=== PATIENT | male | born 1960 | race Caucasian/White ===

== ENCOUNTER 2016-09-12 17:03 | Emergency (ER) | payer BC ==
[~2016-09-12] VITALS: Ht 180.3 cm; Wt 75.5 kg
[2016-09-12 17:07] VITALS: Ht 180.3 cm; Wt 75.5 kg
--- NOTE | 2016-09-12 17:41 | EMERGENCY ROOM VISIT NOTE ---
History First contact with patient: 17:10 Chief Complaint: HAND PAIN/INJURY Stated Complaint: LEFT HAND SWELLING History of Present Illness The patient is a 56 year old male who presents to the Emergency Room with complaints of a cat bite to his left arm yesterday. He was bit on his arm yesterday morning and went to his primary care provider. At his doctors office he states that he presented with a fever and his hand was very swollen and red. He was given a dose of Rocephin as well as started on Augmentin. He had taken 2 doses of Augmentin yesterday, and then 1 dose this morning but noticed continued redness in the area of the bite. He went back to his primary care physician this afternoon and was told to come to the emergency department. He currently states that the pain in his hand is 7 out of 10 and that because of the swelling is limited movement of his hand. He states that he did have a fever last night although was not documented, but he does not feel like he has a fever at this time. Review of Systems See HPI for pertinent positives and negatives. A total of ten systems were reviewed and were otherwise negative. Social History Smoking Status: Never Smoker Current/Historical Medications Scheduled Amoxicillin & Pot Clavulanate (Augmentin 875-125 mg), 1 TAB PO BID Pantoprazole (Protonix), 40 MG PO DAILY Scheduled PRN Tramadol (Ultram), 50 MG PO Q8H PRN for Pain Allergies Coded Allergies: No Known Allergies (Verified , 09/12/16) Physical Exam Vital Signs Date Time Temp Pulse Resp B/P (MAP) Pulse Ox O2 Delivery O2 Flow Rate FiO2 09/12/16 18:54 79 17 135/87 97 Room Air 09/12/16 17:07 36.7 88 18 142/87 92 Room Air Physical Exam GENERAL: Awake, alert, well-appearing, in no distress HENT: Normocephalic, atraumatic. EYES: Normal conjunctiva. Sclera non-icteric. NECK: Supple. No nuchal rigidity. RESPIRATORY: Clear to auscultation. CARDIAC: Regular rate, normal rhythm. Extremities warm and well perfused. Pulses equal. ABDOMEN: Soft, non-distended. No tenderness to palpation. No rebound or guarding. No masses. RECTAL: Deferred. MUSCULOSKELETAL: Tenderness to palpation over the left forearm and wrist. Patient has 5/5 strength in the left arm. Swelling over the left arm into the PIP joints of the digit. LOWER EXTREMITIES: Calves are equal size bilaterally and non-tender. No edema. No discoloration. NEURO: Normal sensorium. No sensory or motor deficits noted. SKIN: Erythema over the left forearm and hand. Appears that the majority of the infection has receded within the margins and is improving. Skin is hot and tender over the area of erythema. Erythema extends distally from the PIP/DIP joints of the 5 fingers to the mid forearm proximally. Medical Decision & Procedures Laboratory Results 09/12/16 17:55 Red Blood Count 4.63, Mean Corpuscular Volume 91.1, Mean Corpuscular Hemoglobin 31.7, Mean Corpuscular Hemoglobin Concent 34.8, Mean Platelet Volume 9.1, Neutrophils (%) (Auto) 73.7, Lymphocytes (%) (Auto) 12.7, Monocytes (%) (Auto) 12.2, Eosinophils (%) (Auto) 1.0, Basophils (%) (Auto) 0.2, Neutrophils # (Auto ) 7.06, Lymphocytes # (Auto) 1.22, Monocytes # (Auto) 1.17, Eosinophils # (Auto ) 0.10, Basophils # (Auto) 0.02 09/12/16 17:55 Test 09/12/16 17:55 White Blood Count 9.59 K/uL (4.8-10.8) Red Blood Count 4.63 M/uL (4.7-6.1) Hemoglobin 14.7 g/dL (14.0-18.0) Hematocrit 42.2 % (42-52) Mean Corpuscular Volume 91.1 fL (80-100) Mean Corpuscular Hemoglobin 31.7 pg (25-34) Mean Corpuscular Hemoglobin Concent 34.8 g/dl (32-36) Platelet Count 247 K/uL (130-400) Mean Platelet Volume 9.1 fL (7.4-10.4) Neutrophils (%) (Auto) 73.7 % Lymphocytes (%) (Auto) 12.7 % Monocytes (%) (Auto) 12.2 % Eosinophils (%) (Auto) 1.0 % Basophils (%) (Auto) 0.2 % Neutrophils # (Auto) 7.06 K/uL (1.4-6.5) Lymphocytes # (Auto) 1.22 K/uL (1.2-3.4) Monocytes # (Auto) 1.17 K/uL (0.11-0.59) Eosinophils # (Auto) 0.10 K/uL (0-0.5) Basophils # (Auto) 0.02 K/uL (0-0.2) RDW Standard Deviation 42.2 fL (36.4-46.3) RDW Coefficient of Variation 12.5 % (11.5-14.5) Immature Granulocyte % (Auto) 0.2 % Immature Granulocyte # (Auto) 0.02 K/uL (0.00-0.02) Anion Gap 6.0 mmol/L (3-11) Est Creatinine Clear Calc Drug Dose 93.3 ml/min Estimated GFR () 105.2 Estimated GFR (Non- 90.8 BUN/Creatinine Ratio 17.1 (10-20) Calcium Level 8.6 mg/dl (8.5-10.1) Medications Administered Medications (Trade) Dose Ordered Sig/Dennis Route Start Time Stop Time Status Last Admin Dose Admin Ceftriaxone Sodium (Rocephin Inj) 1 gm NOW STAT IV 09/12/16 18:37 09/12/16 18:38 DC 09/12/16 18:53 1 GM Medical Decision The patient is a 56-year-old male presents with a one-day history of redness and swelling to his left hand after sustaining a cat bite - Labs: CBC, BMP - Imagin View X-Ray of Left Wrist - Antibiotics: 1gm Rocephin Impression Primary Impression: Cat bite of hand Patient is a 56 year old male that present with a left hand cat bite - The infection appears to be improved on current antibiotic regimen - Patient received another 1gm Rocephin in the ED - left wrist X-ray shows no acute finding, cbc and bmp wnl - Will leave IV in patient for repeat treatment tomorrow with Rocephin in the ED - Patient instructed to continue with Augmentin oral antibiotics Departure Information Dispostion Home / Self-Care Condition GOOD Referrals No Doctor, Assigned (PCP) Forms HOME CARE DOCUMENTATION FORM, IMPORTANT VISIT INFORMATION, Work Instructions Return To Work: 1 day Specific Date: 09/14/2016 Patient Instructions My [facility] Additional Instructions - Please leave your IV in place as you will return to ED tomorrow evening ( after 5pm) for a repeat dose of Rocephin IV - Antibiotic treatment for the bite - Continue oral dose of Augmentin as directed - If you presents with worsening symptoms including fever, chill, numbness or tingling in your fingers, loss of movement of your hand, worsening pain, or any other concerning symptoms please return to the Emergency department Problem Qualifiers Primary Impression: Cat bite of hand Encounter type: initial encounter Laterality: left Qualified Codes: S61.452A - Open bite of left hand, initial encounter; W55.01XA - Bitten by cat, initial encounter
[2016-09-12 18:23] LABS: BASO % 0.2 %; BASO ABS # 0.02 K/uL (0-0.2); COMPLETE YES; HEMATOCRIT 42.2 % (42-52); IG% 0.2 %; LYMPH % 12.7 %; LYMPH ABS # 1.22 K/uL (1.2-3.4); MEAN CELL VOLUME 91.1 fL (80-100); MEAN CORPUSCULAR HEMOGLOBIN 31.7 pg (25-34); MEAN CORPUSCULAR HGB CONC 34.8 g/dl (32-36); MEAN PLATELET VOLUME 9.1 fL (7.4-10.4); MONO % 12.2 %; NEUT % 73.7 %; PLATELET COUNT 247 K/uL (130-400); RED BLOOD COUNT 4.63 M/uL (4.7-6.1); WHITE BLOOD COUNT 9.59 K/uL (4.8-10.8)
--- NOTE | 2016-09-12 18:26 | DIAGNOSTIC IMAGING REPORT ---
LEFT WRIST MIN 3 VIEWS ROUTINE CLINICAL HISTORY: Abnormal bright. Soft tissue swelling. COMPARISON: None. DISCUSSION: There are mild degenerative changes present. No fractures are visualized. There are no radiopaque foreign bodies. No destructive lesions are evident. No gas is visualized in soft tissues. There is soft tissue swelling. IMPRESSION: 1. Soft tissue swelling. 2. No radiopaque foreign bodies identified 3. No acute fractures 4. Arthritic changes Electronically signed by: Cruz Merlos M.D. 09/12/2016 6:24 PM Dictated Date/Time: 09/12/2016 6:23 PM
--- NOTE | 2016-09-12 18:33 | EMERGENCY ROOM VISIT NOTE ---
ED Visit Note First contact with patient: 17:10 Resident Physician Supervision Note: I was present with Dr. Arriaza during the history and exam. I discussed the case with the resident and agree with the findings and plan as documented in the note. Documented By: Jake Mejias
[2016-09-12] MEDS ORDERED: CEFTRIAXONE SOD INJ 1 GM ADDVIAL IV STA (18:37)
[2016-09-12 18:39] LABS: BUN/CREATININE RATIO 17.1 (10-20); CALCIUM 8.6 mg/dl (8.5-10.1); CREATININE 0.93 mg/dl (0.60-1.40); POTASSIUM 3.9 mmol/L (3.5-5.1)
[2016-09-12 20:31] VITALS: BP 119/71; PULSE 86; TEMP 37.2; O2SAT 95
[2016-09-13] MEDS ORDERED: TRAM-10 PO (18:27)
[2016-09-13] MEDS ORDERED: PANT40TA PO (18:27)
[2016-09-13] MEDS ORDERED: AMOX875T PO (18:27)
== END 2016-09-12 20:50 | disposition home or self-care (01) ==
LOC: C.EDB 17:04
DX: S61.452D Open bite of left hand, subsequent encounter (principal); W55.01XD Bitten by cat, subsequent encounter; Z79.899 Other long term (current) drug therapy

== ENCOUNTER 2016-09-13 19:30 | Emergency (ER) | payer BC ==
[~2016-09-13] VITALS: Ht 180.3 cm; Wt 75.7 kg
[~2016-09-13 19:30] MED LIST: AMOX875T PO; PANT40TA PO; TRAM-10 PO
[2016-09-13 19:43] VITALS: Ht 180.3 cm; Wt 75.7 kg
[2016-09-13] MEDS ORDERED: CEFTRIAXONE SOD INJ 1 GM ADDVIAL IV STA (20:29)
--- NOTE | 2016-09-13 21:57 | EMERGENCY ROOM VISIT NOTE ---
ED Visit Note First contact with patient: 20:20 CHIEF COMPLAINT: Infection of the left arm, s/p cat bite HISTORY OF PRESENT ILLNESS: This 56-year-old male patient presents to the emergency department complaining of cellulitis of his left arm s/p cat bite. Please see note from yesterday regarding more detailed history. The patient was seen in the emergency department yesterday he was given a dose of IV Rocephin and instructed on taking Augmentin for the infection. The patient was instructed to keep the IV in place overnight, and return to the emergency department today for a repeat dose of Rocephin. The area on the left hand and forearm continues to be red, warm, and very painful. The patient does report chills, body aches, nausea. He denies fever, loss of appetite. Movement of the left hand, wrist, arm is mildly decreased because of the pain. REVIEW OF SYSTEMS: A 10-system review of systems was performed with positives and pertinent negatives listed in the history of present illness. All other systems were reviewed and are negative. ALLERGIES: None MEDICATIONS: Augmentin, tramadol, Protonix PMH: GERD SOCIAL HISTORY: The patient lives locally with his family. Denies drug, tobacco , alcohol use. PHYSICAL EXAM: Vital Signs: Reviewed Nurse's notes, Temperature 37.0C, vital signs stable. GENERAL: 56-year-old male, in no acute distress, is non toxic in appearance, well-developed, well-nourished. SKIN: The left hand, wrist, forearm , distal to the elbow, is red, warm, very tender, and swollen. Outline of the erythema was drawn on patient's arm. Redness continues to remain well within these borders. There is no lymphangitic streaking. There is no discharge. There is no fluctuance. There is no induration. HEART: Regular rate and rhythm without murmur, gallop, or rub. LUNGS: Clear to auscultation bilaterally without wheezes, rales, or rhonchi. NEURO: Alert and oriented to person, place, and time. Normal sensation to light and sharp touch. Capillary reflex less than 2 seconds. Peripheral pulses 2 + bilaterally. EMERGENCY DEPARTMENT COURSE: I examined the patient. The patient was given Rocephin 1 g. IV in the emergency department. The patient was then seen and evaluated by Dr. Huerta. Please see his dictation for further evaluation. IV was discontinued, and patient was discharged home with instructions for ongoing treatment with Augmentin, rest, elevation, and ice. The patient is advised to follow-up in the emergency department for worsening symptoms. He is strongly encouraged to follow up with his primary care doctor early next week. The patient was discharged home in good condition. DIFFERENTIAL DIAGNOSIS: Sepsis, cellulitis, local infection, and others. DIAGNOSIS: Cellulitis of the left upper extremity DISCHARGE INSTRUCTIONS: Please continue to take the Augmentin which was prescribed to you. Continue to monitor the infection for increased redness, warmth, swelling, drainage, fever, chills, nausea, vomiting. If you experience worsening symptoms , return to the emergency department for further evaluation and treatment. Patient to follow up with your primary care provider on Friday for further evaluation and monitoring of the infection. Current/Historical Medications Scheduled Amoxicillin & Pot Clavulanate (Augmentin 875-125 mg), 1 TAB PO BID Pantoprazole (Protonix), 40 MG PO DAILY Scheduled PRN Tramadol (Ultram), 50 MG PO Q8H PRN for Pain Allergies Coded Allergies: No Known Allergies (Verified , 09/12/16) Vital Signs Date Time Temp Pulse Resp B/P (MAP) Pulse Ox O2 Delivery O2 Flow Rate FiO2 09/13/16 22:27 37.0 81 18 131/87 94 09/13/16 22:25 81 18 131/87 94 Room Air 09/13/16 19:43 37.0 84 18 136/90 94 Room Air Medications Administered Medications (Trade) Dose Ordered Sig/Dennis Route Start Time Stop Time Status Last Admin Dose Admin Ceftriaxone Sodium (Rocephin Inj) 1 gm NOW STAT IV 09/13/16 20:29 09/13/16 20:31 DC 09/13/16 20:50 1 GM Departure Information Impression Primary Impression: Cellulitis of left upper extremity Dispostion Home / Self-Care Condition GOOD Referrals No Doctor, Assigned (PCP) Patient Instructions My [facility] Additional Instructions Please continue to take the Augmentin which was prescribed to you. Continue to monitor the infection for increased redness, warmth, swelling, drainage, fever, chills, nausea, vomiting. If you experience worsening symptoms , return to the emergency department for further evaluation and treatment. Patient to follow up with your primary care provider on Friday for further evaluation and monitoring of the infection.
--- NOTE | 2016-09-13 22:18 | EMERGENCY ROOM VISIT NOTE ---
ED Visit Note First contact with patient: 20:20 I did evaluate and examine this patient myself. I did guide management for the patient. I agree with the APC's assessment as discussed. Please see the APC's dictation for further details. The patient cellulitis appears to be improving proximately. He still has some erythema and swelling. He was advised to keep it elevated and use cool compresses and follow up within 48 hours with his doctor. He was told to return immediately should he have high fevers, vomiting or worsening symptoms. He will continue the Augmentin as prescribed.
[2016-09-13 22:27] VITALS: BP 131/87; PULSE 81; TEMP 37; O2SAT 94
== END 2016-09-13 22:27 | disposition home or self-care (01) ==
LOC: C.EDB 19:32 → C.EDD 22:27
DX: L03.114 Cellulitis of left upper limb (principal); K21.9 Gastro-esophageal reflux disease without esophagitis; Z79.899 Other long term (current) drug therapy